=== PATIENT | female | born 1990 | race African-American/Black ===

== ENCOUNTER 2016-06-21 23:03 | Emergency (ER) | payer SELFPAY ==
[~2016-06-21] VITALS: Ht 167.6 cm; Wt 180.0 kg
[2016-06-21 23:46] VITALS: BP 125/73
== END 2016-06-22 01:32 | disposition left against medical advice (07) ==
LOC: ER 06-22 00:51
DX: M54.9 Dorsalgia, unspecified (principal); Z53.21 Procedure and treatment not carried out due to patient leaving prior to being seen by health care provider